=== PATIENT | female | born 1965 | race Caucasian/White ===

== ENCOUNTER → 2017-02-09 | Outpatient (CLI) | payer MEDICARE ==
[~2017-02-09] MED LIST: ALPRAZOLAM PO; ASPIRIN PO; ASPIRIN81 M2 PO; CARAFATE PO; CELEBREX PO; CYMBALTA30 MG PO; EFFEXOR XR PO; FLEXERIL PO; GLYBURIDE PO; HYDROCODON-ACE1 EAC4 PO; INDERAL40 MG PO; LANTUS INSULIN SQ; LEVSIN PO; LYRICA PO; METFORMIN PO; NEXIUM PO; OMEPRAZOLE20 M1 PO; PERCOCET 10/31 UDTA1 PO; PERCOCET PO; PRAVACHOL PO; REGLAN PO; SYNTHROID PO; TRAZODONE PO; ZESTRIL2.5 M1 PO
--- NOTE | ~2017-02-09 | MR152 ---
[facility] A Service of [facility] RADIOLOGY TEXT RESULTS PATIENT: LEIDA MAGAÑA [facility] : 63 UNIT #: [id number] AGE: [address]: Anurag Bowman MD SEX: F ORDER DR: [id number] [facility] [address] [place], [place] [address] [id number] O MR#: [id number] Acc #: [id number] NAME: LEIDA MAGAÑA : 1965 SEX: F STUDY DATE/TIME: 02/09/2017 8:03 UNIT: [facility] ROOM: STUDY DESCRIPTION: MR Pelvis Wo Contrast Attending Physician: Anurag Bowman M.D. Ordering Physician: Anurag Bowman M.D. Primary Care Physician: Catrina Muro M.D. MRI CENTER REPORT This report is preliminary unless electronic signature is present. EXAM MRI pelvis and hips 02/09/2017 COMPARISON MRI pelvis and hips 07/28/2016. Office notes 01/13/2017, [facility]. HISTORY Order states right hip and back pain. History sheet states continued pain in the right hip, groin and buttock area to the lower back since walking in March 2016 that which she felt a pop in her groin and persistent pain. Diabetic. FINDINGS Hips show no effusion, fracture, arthrosis, avascular necrosis, or gross labral pathology. The remainder of the bony pelvis, sacrum, and SI joints are within normal limits. Right gluteus minimus peritendinous preinsertional inflammation appears slightly improved from 07/28/2016. No tear or detachment is noted. Gluteal muscle tendon complexes are otherwise within normal limits. Hamstring origins at the ischial tuberosities are within normal limits. Hysterectomy is reported in the documents. Sigmoid diverticulosis is noted. No intrapelvic mass, lymphadenopathy, or hernia is identified. Pubic symphysis is within normal limits. There is no high-grade muscle atrophy except for the right rectus abdominus. This is unchanged. [facility] A Service of [facility] RADIOLOGY TEXT RESULTS PATIENT: LEIDA MAGAÑA LOCATION: [facility] : 63 UNIT #: [id number] AGE: [address]: Anurag Bowman MD SEX: F ORDER DR: IMPRESSION 1. Slightly improved right gluteus minimus peritendinous preinsertional inflammation without a tear since 07/28/2016. 2. No new abnormalities are noted. 3. Hysterectomy and diverticulosis. 4. Chronic atrophy right rectus abdominus muscle. No hernia is seen. Dictated by... Raisa Devine M.D. THIS IS AN ELECTRONICALLY VERIFIED REPORT Raisa Devine M.D. at 02/09/2017 2:02 PM [facility]/to TD: 02/09/2017 11:50 JOB #: [id number] MRI CENTER REPORT Page 1 of 1 COPY
== END | disposition home or self-care (01) ==
LOC: CMRI 07:17
DX: M25.551 Pain in right hip (principal); M54.9 Dorsalgia, unspecified; K57.30 Diverticulosis of large intestine without perforation or abscess without bleeding; Z90.710 Acquired absence of both cervix and uterus
CPT/HCPCS: 72195